=== PATIENT | male | born 2000 | race Caucasian/White ===

== ENCOUNTER 2024-09-13 20:24 | Emergency (ER) | payer OTHER, SELFPAY ==
[2024-09-13] VITALS (9 sets, daily range): BP systolic 106–144; BP diastolic 68–86; PULSE 86–112; RESP 15–22; TEMP 36.6; O2SAT 96–100
--- NOTE | ~2024-09-13 | CT_ITS ---
EXAMINATION: CT brain wo con DATE: 09/13/2024 21:31 INDICATION: seizure . TECHNIQUE: Computed tomography (CT) of the head was performed without intravenous contrast. The mA wa s adjusted according to patient size. Iterative reconstruction technique was employed. The dose-lengt h product was 681.00 mGy-cm. COMPARISON: 11/01/2022. FINDINGS: No acute intracranial hemorrhage or extra-axial fluid collection. No hydrocephalus, mass, or herniation. No acute ischemic infarct. Unremarkable dural venous sinus attenuation. No acute osseous abnormality. Small right maxillary retention cyst/polyp, the remaining aerated spaces are clear. IMPRESSION: No acute intracranial process. Reviewed, dictated and finalized at location K. MING INSTRUCTOR
--- NOTE | 2024-09-13 20:32 | ECG_ITS ---
Test Date: 2024-09-13 20:57:30 Measurements Intervals [place] Rate: 82 P: 73 [place]: 132 QRS: 86 QRSD: 104 T: 75 QT: 376 QTc: 441 Interpretive Statements SINUS RHYTHM POSSIBLE LEFT ATRIAL ENLARGEMENT INCOMPLETE RIGHT BUNDLE BRANCH BLOCK MINIMAL Q WAVES- INFERIOR LEADS BORDERLINE ECG No previous ECG available for comparison Electronically Signed On 09-14-2024 08:10:25 AUTOMOTIVE ELECTRICAL FITTER by Blaze Mack D.O.
--- OUTSIDE RECORDS SUMMARY | 2024-09-13 20:43 | XMS_ITS | Encounter Summary ---
Author Organization [facility] Address 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
--- OUTSIDE RECORDS SUMMARY | 2024-09-13 20:43 | XMS_ITS | Encounter Summary ---
Author Organization [facility] Address 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
--- OUTSIDE RECORDS SUMMARY | 2024-09-13 20:43 | XMS_ITS | Encounter Summary ---
Author Organization [facility] Address 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
--- OUTSIDE RECORDS SUMMARY | 2024-09-13 20:43 | XMS_ITS | Encounter Summary ---
Author Organization [facility] Address 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
--- OUTSIDE RECORDS SUMMARY | 2024-09-13 20:43 | XMS_ITS | Encounter Summary ---
Author Organization [facility] Address 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
--- OUTSIDE RECORDS SUMMARY | 2024-09-13 20:43 | XMS_ITS | Encounter Summary ---
Author Organization [facility] Address 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
--- OUTSIDE RECORDS SUMMARY | 2024-09-13 20:43 | XMS_ITS | Encounter Summary ---
Author Organization [facility] Address 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
--- OUTSIDE RECORDS SUMMARY | 2024-09-13 20:43 | XMS_ITS | Clinical Summary ---
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 Gender Identity Not on file Sexual Orientation Not on file Plan of Treatment Health Maintenance Due Date Last Done Comments Hepatitis C Virus (HCV) Screening 2001 Meningococcal B Immunization (1 of 2 - Standard) 2017 Human Papillomavirus (HPV) Immunization (2 - Male 3-dose series) 08/06/2017 07/09/2017 Influenza Immunization (#1) 2024 07/09/2017 SARS-COV-2 Immunization ( - season) 2024 Respiratory Syncytial Virus (RSV) Immunization (Adult) (1 - 1-dose 75+ series) 2076 Hepatitis B Immunization Completed 002, 2001, 2001 Pneumococcal Immunization Combined Completed 07/24/2002, 01/30/2002, 2001, Additional history exists DTaP/Tdap/Td Immunization Discontinued 2016, 03/21/2013, 03/19/2006, Additional history exists Meningococcal Immunization (ACWY) Completed 07/09/2017, 03/21/2013 TdaP Immunization Completed 07/09/2017, 03/21/2013 Rotavirus Immunization Aged Out No lo nger eligible based on patient's age to complete this topic
--- OUTSIDE RECORDS SUMMARY | 2024-09-13 20:43 | XMS_ITS | Encounter Summary ---
Author Organization [facility] Address 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
--- OUTSIDE RECORDS SUMMARY | 2024-09-13 20:43 | XMS_ITS | Clinical Summary ---
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 Gender Identity Not on file Sexual Orientation Not on file Plan of Treatment Health Maintenance Due Date Last Done Comments HPV VACCINES (1 - Male 3-dos e series) 2016 DTAP/TDAP/TD VACCINES (1 - Tdap) 2020 HEPATITIS B VACCINES (1 of 3 - 19+ 3-dose series) 2020 INFLUENZA VACCINE (#1) 2024 PNEUMOCOCCAL VACCINE 0-64 YEARS Aged Out No longer eligible based on patient's age to complete this topic Insurance * Guarantor: Ferny Coleman Account Type Relation to Patient Date of Phone Billing Address Personal/Family Self 2000 [phone] (Work) [address] [place] [address] BS BLUE ACCESS/TRUE BLUE PPO BLUE ACCESS/TRUE BLUE PPO Care Teams Motorcoach Operator Relationship Specialty Start Date End Date Ferny Herrera MD [address] [place] [address] PCP - General 02/19/03
--- OUTSIDE RECORDS SUMMARY | 2024-09-13 20:43 | XMS_ITS | Encounter Summary ---
Author Organization [facility] Address 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
--- OUTSIDE RECORDS SUMMARY | 2024-09-13 20:43 | XMS_ITS | Encounter Summary ---
Author Organization [facility] Address 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
--- OUTSIDE RECORDS SUMMARY | 2024-09-13 20:43 | XMS_ITS | Encounter Summary ---
Author Organization [facility] Address 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
--- OUTSIDE RECORDS SUMMARY | 2024-09-13 20:43 | XMS_ITS | Encounter Summary ---
Author Organization [facility] Address 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
--- OUTSIDE RECORDS SUMMARY | 2024-09-13 20:43 | XMS_ITS | Encounter Summary ---
Author Organization [facility] Address [address] [place] [address] Care Team Providers Care Bark Press Operator Name Role Phone Ferny Herrear MD Primary Care Provider [phone] Encounter Details Date Type Department Care Team (Late st Contact Info) Description 02/18/2003 Outpatient Historical [facility] Pediatrics [address] [place] [address] Daniel Lehman MD [address] 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
--- OUTSIDE RECORDS SUMMARY | 2024-09-13 20:43 | XMS_ITS | Encounter Summary ---
Author Organization [facility] Address 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
--- OUTSIDE RECORDS SUMMARY | 2024-09-13 20:43 | XMS_ITS | Clinical Summary ---
Author Organization [facility] Address [address] [place] [address]. [place], [place] [address] [place] [address] Care Team Providers Care Wing Commander Name Role Phone Marcellus Sutton MD Primary Care Provider [phone] Allergies No known active allergies Medications naloxone (NARCAN) 4 MG/0.1ML nasal spray 1 spray by Nasal route as needed for Opioid reversal. 2 each 3 Active buprenorphine (SUBUTEX) 2 MG SL tabletIndicatio ns:Medication-A ssisted Treatment (MAT) Place 1 tablet (2 mg total) under the tongue daily. Indications: Medication-Ass isted Treatment (MAT) 14 tablet 3 Active levETIRAcetam (KEPPRA) 500 MG tablet Take 1 tablet (500 mg total) by mouth 2 (two) times daily. 60 tablet 3 Active Social History Tobacco Use Types Packs/Day Years Used Date Smoking Tobacco: Never Smokeless Tobacco: Never Tobacco Cessation:Counseling Given: Not Answered Alcohol Use Standard Drinks/Week Comments Yes 0 (1 standard drink = 0.6 oz pur e alcohol) OCC Sex and Gender Information Value Date Recorded Sex Assigned at Not on file Legal Sex Male 5:15 PM CDT Gender Identity Not on file Sexual Orientation Not on file Last Filed Vital Signs Vital Sign Reading Time Taken Comments Blood Pressure 145/120 01/10/2023 3:18 AM CDT Pulse 66 01/10/2023 5:30 AM CDT Temperature 36.8 ??C (98.3 ??F) 01/10/2023 5:30 AM CD T Respiratory Rate 15 01/10/2023 5:30 AM CDT Oxygen Saturation 97% 01/10/2023 5:30 AM CDT Inhaled Oxygen Concentration - - Weight 60.4 kg (133 lb 2.5 oz) 01/10/2023 2:29 A M CDT Height 185.4 cm (6' 1 ) 01/10/2023 2:29 AM CDT Body Mass Index 17.57 01/10/2023 2:29 AM CDT Plan of Treatment Health Maintenance Due Date Last Done Comments Annual Physical 2004 Meningococcal B Vaccine (1 of 2 - Standard) 2017 HPV Vaccines (2 - Male 3-dose series) 08/06/2017 07/09/2017 Hepatitis C 2019 COVID-19 Vaccine ( - season) 2024 Influenza Adult (#1) 2024 07/09/2017 DTaP, Tdap and Td Vaccines (8 - Td or Tdap) 07/09/2027 07/09/2017, 03/21/2013, 03/19/2006, Additional history exists Hepatitis B Vaccines Completed 07/24/2002, 2001, 2001 Pneumococcal Vaccine: Pediatrics (0 to 5 Years) and At-Risk Patients (6 to 64 Years) Completed 07/24/2002, 01/30/2002, 2001, Additional history exists Meningococcal Vaccine Completed 07/09/2017, 013 RSV Immunizations Under 20 Months Aged Out No longer eligible based on patient's age to complete this topic Insurance MEDICAID Care Teams Wing Commander Relationship Specialty Start Date End Date Marcellus Sutton MD [address] [place] [address] PCP - General FAMILY PRACTICE 08/11/22
[2024-09-13 20:51] LABS: Basophils Absolute Auto 0.1 K/mm3 (0.0-0.1); Basophils Percent Auto 0.5 % (0.2-1.2); Eosinophils Absolute Auto 0.1 K/mm3 (0-0.3); Eosinophils Percent Auto 0.8 % (0-4.4); Hematocrit 46.7 % (42.0-52.0); Hemoglobin 15.3 g/dL (14.0-18.0); Immature Granulocyte Absolute 0.15 K/mm3 (0.00-0.031); Lymphocytes Absolute Auto 4.01 K/mm3 (0.9-3.2); Mean Corpuscular HGB Conc 32.8 g/dl (32-36); Mean Corpuscular Hemoglobin 30.5 pg (26-34); Mean Corpuscular Volume 93.2 fl (80-100); Mean Platelet Volume 11.8 fl (7.4-10.4); Monocytes Absolute Auto 0.8 K/mm3 (0.1-0.6); Neutrophils Absolute Auto 10.3 K/mm3 (1.3-6.7); Neutrophils Percent Auto 66.7 % (45.5-73.1); Platelet Count Result 293 k/mm3 (150-375); Red Blood Count 5.01 M/mm3 (4.6-6.20); White Blood Count 15.4 K/mm3 (4.5-10.0)
[2024-09-13] MEDS: SODIUM CHLORIDE 0.9% IV 1,000 ML 999 ML IV CONT ×2 (20:51→23:12)
[2024-09-13] MEDS: LORazepam INJ (*CRX) 2 MG/ML VIAL IV PUSH (20:52)
--- NOTE | 2024-09-13 20:59 | ED_ITS ---
HPI - General Adult General Chief complaint: Seizure Stated complaint: seizure Time Seen by Provider: 09/13/24 20:28 History of Present Illness HPI narrative: Patient is a 24-year-old gentleman who presents emergency department with chief complaint of seizures. Patient has had 3 seizures and has prior history of seizures in the past but is not on any medications patient does report that he stopped using Percocet and Xanax recently The patient reports that he takes 6 2 mg Xanax is on a normal day and will also take a Percocet or two Related Data Allergies Allergy/AdvReac Type Severity Reaction Status Date / Time No Known Allergies Allergy Verified 09/13/24 21:12 Review of Systems 2 Review of Systems: A 10 system review of systems was completed on the patient and is negative except for what is stated in the HPI. Nursing and ancillary documentation was reviewed. Exam 2 Narrative: GENERAL: Well-appearing, well-nourished, and in no acute distress. Postictal HEAD: Normocephalic, atraumatic. EYES: PERRLA and EOMI. ENT: Nares clear, no rhinorrhea or epistaxis. Mucous membranes moist. NECK: Supple. CHEST: Clear to auscultation. No respiratory distress. HEART: Regular rate and rhythm. No murmur heard. Normal peripheral pulses. ABDOMEN: Soft, nontender, nondistended, normal active bowel sounds. EXTREMITIES: Normal range of motion. No edema. SKIN: Warm, dry, no rash. NEURO: No focal deficits. Alert and oriented x3. Confused PSYCH: Normal mood and affect. Course Vital Signs Vital signs: Vital Signs Temperature 36.6 C 09/13/24 20:23 Pulse Rate 112 H 09/13/24 20:23 Respiratory Rate 21 H 09/13/24 20:23 Pulse Oximetry 98 09/13/24 20:23 Oxygen Delivery Room Air 09/13/24 20:23 Temperature 36.6 C 09/13/24 21:15 Pulse Rate 88 09/13/24 22:57 Respiratory Rate 15 09/13/24 22:57 Blood Pressure 124/76 09/13/24 22:57 Pulse Oximetry 100 09/13/24 22:57 Oxygen Delivery Room Air 09/13/24 20:38 Medical Decision Making [facility] Narrative Medical decision making narrative: Patient was given Ativan in the emergency department to treat for benzodiazepine withdrawal/seizure activity the patient was not chemically restrained The patient is feeling much better at this time after receiving fluids and Ativan. The patient's lactate was initially elevated but after hydration and the patient improving has returned back to normal. In discussion with the patient his CIWA protocol is only 2 patient will be offered outpatient resources and given a prescription for Librium Vital Signs Vital Signs: Vital Signs Temperature 36.6 C 09/13/24 20:23 Pulse Rate 112 H 09/13/24 20:23 Respiratory Rate 21 H 09/13/24 20:23 Pulse Oximetry 98 09/13/24 20:23 Oxygen Delivery Room Air 09/13/24 20:23 Temperature 36.6 C 09/13/24 21:15 Pulse Rate 88 09/13/24 22:57 Respiratory Rate 15 09/13/24 22:57 Blood Pressure 124/76 09/13/24 22:57 Pulse Oximetry 100 09/13/24 22:57 Oxygen Delivery Room Air 09/13/24 20:38 Lab Data 09/13/24 20:45 09/13/24 20:45 Labs: Lab Results 09/13/24 09/14/24 Range/Units 20:45 01:17 WBC 15.4 H (4.5-10.0) K/mm3 RBC 5.01 (4.6-6.20) M/mm3 Hgb 15.3 (14.0-18.0) g/dL Hct 46.7 (42.0-52.0) % MCV 93.2 (80-100) fl MCH 30.5 (26-34) pg MCHC 32.8 (32-36) g/dl RDW 12.0 (11.5-14.5) % Plt Count 293 (150-375) k/mm3 MPV 11.8 H (7.4-10.4) fl Immature Gran % (Auto) 1.0 H (0-0.5) % Neut % (Auto) 66.7 (45.5-73.1) % Lymph % (Auto) 26.0 (18.3-44.2) % Churchill % (Auto) 5.0 (2.6-8.5) % Eos % (Auto) 0.8 (0-4.4) % Baso % (Auto) 0.5 (0.2-1.2) % Lymph # (Auto) 4.01 H (0.9-3.2) K/mm3 Churchill # (Auto) 0.8 H (0.1-0.6) K/mm3 Eos # (Auto) 0.1 (0-0.3) K/mm3 Baso # (Auto) 0.1 (0.0-0.1) K/mm3 Abs Immat Gran (auto) 0.15 H (0.00-0.031) K/mm3 Absolute Neuts (auto) 10.3 H (1.3-6.7) K/mm3 Absolute Nucleated RBC 0.000 (0.0-0.012) K/mm3 Nucleated RBC % 0.0 (0.0-0.2) % Sodium 141 (137-145) mmol/L Potassium 3.9 (3.4-5.0) mmol/L Chloride 103 (98-107) mmol/L Carbon Dioxide 8 L (22-30) mmol/L Anion Gap 30 H (4-12) mmol/L BUN 6 L (9-20) mg/dL Creatinine 0.85 (0.7-1.3) mg/dL Estim Creat Clear Calc 98 ml/min Estimated GFR > 60 (59 - ) Glucose 136 H (65-110) mg/dL Lactic Acid 15.0 H* 0.5 L (0.7-2.0) mmol/L Calcium 9.6 (8.4-10.2) mg/dL Magnesium 2.4 H (1.6-2.3) mg/dL Total Bilirubin 0.9 (0.2-1.3) mg/dL AST 34 (17-59) U/L ALT 28 (6-50) U/L Alkaline Phosphatase 55 (38-126) U/L Total Creatine Kinase 245 H (55-170) U/L Total Protein 7.0 (6.3-8.2) g/dL Albumin 5.0 (3.5-5.1) g/dL TSH 1.640 (0.465-4.680) uIU/mL Urine Color Yellow (Yellow) Urine Appearance Clear (Clear) Urine pH 5.5 (5.0-9.0) Ur Specific [place] 1.012 (1.001-1.035) Urine Protein 2+ H (Negative) mg/dL Urine Glucose (UA) Negative (Negative) mg/dL Urine Ketones Trace H (Negative) mg/dL Ur Blood (Man) 3+ H (Negative) Urine Nitrate Negative (Negative) Urine Bilirubin Negative (Negative) Urine Urobilinogen 0.2 (<2.0) mg/dL Add Ur Microanalysis Reviewed Leukocyte Esterase Rfl Negative (Negative) REENA/UL Urine RBC 0-2 (0-2) /hpf Urine WBC 0-5 (0-3) /hpf Ur Squamous Epith Cells None seen (Few) /hpf Urine Bacteria None seen /hpf Urine Casts 3-5 Salicylates < 1.0 L (2-20) mg/dL Urine Opiates Screen Negative (Negative) Urine Methadone Screen Negative (Negative) Acetaminophen < 10 L (10-30) ug/mL Ur Barbiturates Screen Negative (Negative) Ur Phencyclidine Scrn Negative (Negative) Ur Amphetamine Screen Negative (Negative) U Benzodiazepines Scrn Negative (Negative) Urine Cocaine Screen Negative (Negative) U Cannabinoids Screen Positive A (Negative) Ethyl Alcohol < 10 (<10) mg/dL Influenza A (RT-PCR) Negative (Negative) Influenza B (RT-PCR) Negative (Negative) RSV (RT-PCR) Negative (Negative) SARS-CoV-2 RNA (RT-PCR) Negative (Negative) Critical Care Time Critical Care Time Critical Care Time: Yes Total Critical Care Time: 35 Discharge Plan Discharge Clinical Impression: Benzodiazepine withdrawal, Drug withdrawal seizure Patient Disposition: Home, Self-Care Condition: Stable Instructions: Antibiotic Form, Benzodiazepine Use Disorder (ED) Patient Language: [place] Prescriptions: New chlordiazepoxide HCl 25 mg capsule 25 mg PO Q6-12H PRN (Reason: Benzodiazepine withdrawal) 4 Days Qty: 15 0RF Rx Instructions: Day 1: 50 mg every 6-12 hours Day 2: 25 mg every 6 hours Day 3: 25 mg twice daily Day 4: 25 mg at bedtime Follow-up/Referrals: [facility] [Outside] Saravanan Alva MD [Primary Care Provider] - Time of Disposition: 02:05
[2024-09-13 21:01] LABS: Acetaminophen < 10 ug/mL (10-30); Ethanol < 10 mg/dL (<10); Salicylate < 1.0 mg/dL (2-20)
[2024-09-13 21:10] LABS: Alanine Aminotransferase 28 U/L (6-50); Alkaline Phosphatase 55 U/L (38-126); Anion Gap 30 mmol/L (4-12); Aspartate Amino Transferase 34 U/L (17-59); Bilirubin,Total 0.9 mg/dL (0.2-1.3); Blood Urea Nitrogen 6 mg/dL (9-20); Calcium 9.6 mg/dL (8.4-10.2); Carbon Dioxide 8 mmol/L (22-30); Chloride 103 mmol/L (98-107); Creatine Kinase 245 U/L (55-170); Estimated CRCL calculation 98 ml/min; Estimated Glomerular Filt Rate > 60; Glucose 136 mg/dL (65-110); Magnesium 2.4 mg/dL (1.6-2.3); Potassium 3.9 mmol/L (3.4-5.0); Sodium 141 mmol/L (137-145)
[2024-09-13 21:12] LABS: Add Urine Microscopic? YES; Appearance Urine Clear (Clear); Bacteria Urine None Seen /hpf; Bilirubin Urine Negative (Negative); Blood Urine 3+ (Negative); Color Urine Yellow (Yellow); Glucose Urine UA Negative (Negative); Ketones Urine Trace mg/dL (Negative); Leukocyte Esterase Ur Negative LEU/UL (Negative); Need Manual Microscopic Reviewed; Nitrate Urine Negative (Negative); Protein Urine 2+ mg/dL (Negative); RBC Urine 0-2 /hpf (0-2); Specific Grav Ur 1.012 (1.001-1.035); Squamous Epithelial Cell Urine None Seen /hpf (Few); Urobilinogen Urine 0.2 mg/dL (<2.0); WBC Urine 0-5 /hpf (0-3); pH Urine 5.5 (5.0-9.0)
[2024-09-13 21:15] LABS: Amphetamine Screen Urine Negative (Negative); Barbiturate Screen Urine Negative (Negative); Benzodiazepines Screen Urine Negative (Negative); Cannabinoid Screen Urine Positive (Negative); Cocaine Screen Urine Negative (Negative); Methadone Screen Urine Negative (Negative); Opiate Screen Urine Negative (Negative); Phencyclidine Screen Urine Negative (Negative)
--- NOTE | 2024-09-13 21:15 | PC.NURSE ---
Patient AOx4 at this time.
[2024-09-13 21:27] LABS: Influenza A QL RT-PCR Negative (Negative); Influenza B QL RT-PCR Negative (Negative); RSV RNA, RT-PCR Negative (Negative); SARS-CoV-2 RNA PCR Negative (Negative)
[2024-09-13] MEDS: Please add drug allergy info to patient profile. 1 EACH XX (21:42)
[2024-09-13] MEDS: THIAMINE 500 MG/NS 100 ML 500 MG/100 ML BAG 200 MG IVPB (21:43)
[2024-09-13 23:47] LABS: Reflex Lactic Acid Yes or No Add Lactic
[2024-09-14 01:37] LABS: Lactic Acid 0.5 mmol/L (0.7-2.0)
[2024-09-14 03:28] VITALS: BP 118/72; PULSE 89; RESP 16; O2SAT 100
== END 2024-09-14 03:30 | disposition home or self-care (01) ==
PROVIDERS: Emergency Provider Emergency Medicine; PCP Pediatrics
DX: R56.9 Unspecified convulsions (principal); F13.239 Sedative, hypnotic or anxiolytic dependence with withdrawal, unspecified; F11.23 Opioid dependence with withdrawal; Z20.822 Contact with and (suspected) exposure to COVID-19
CPT/HCPCS: 36415; 70450; 80053; 80143; 80179; 80307; 81001; 82077; 82550; 83605; 83735; 84443; 85025; 87637; 93005; 96361; 96365; 96375; 99284; J2060; J3411; J7030

== ENCOUNTER 2024-11-27 15:22 | Observation (INO) | payer OTHER, SELFPAY ==
[2024-11-27] VITALS (40 sets, daily range): BP systolic 93–137; BP diastolic 52–78; PULSE 65–109; RESP 12–23; TEMP 36.6; O2SAT 95–100; BMI 19.1; BMI 18.2
--- NOTE | ~2024-11-27 | MR_ITS ---
MRI of the brain Clinical History: Recurrent seizure Technique: Axial and sagittal T1-weighted images were acquired. These were followed by axial T2-weigh marcin, diffusion weighted, gradient, and FLAIR images. Following intravenous administration of 13 cc Pr oHance gadolinium, T1-weighted fat-sat imaging was performed in the axial, coronal, and sagittal plan es. Findings: No abnormal signal seen in the brain parenchyma. No acute infarct, intracranial hemorrhage, or mass lesion. Ventricles and subarachnoid spaces are unremarkable. Orbits are unremarkable. Paranasal sinuses and m astoid air cells are clear. Major intracranial flow voids are intact. Sagittal midline structures are intact. No definite evidence for mesial temporal sclerosis. No abnormal postcontrast enhancement identified. IMPRESSION: Normal exam. Reviewed, dictated and finalized at location . IMPRESSION: Normal exam.
--- NOTE | ~2024-11-27 | CT_ITS ---
CT brain wo con Ordering provider: Sharon Mo PA-C History: 24 years Male with . fall, hi, seizure . Comparison: None. Technique: CT of the head without contrast. Radiation reduction technique utilized.The dose-length pr oduct was 681 mGy-cm. FINDINGS: BRAIN PARENCHYMA AND CSF SPACES: No midline shift, mass effect or hemorrhage. The brain parenchyma a nd CSF spaces are otherwise normal. VISUALIZED PARANASAL SINUSES: Left maxillary sinus disease. MASTOIDS: Well aerated. BONES: The bones appear intact. SOFT TISSUES: Visualized nasopharynx is normal. Superficial soft tissues are normal. IMPRESSION: No acute intracranial findings. Reviewed, dictated and finalized at location A.
--- NOTE | ~2024-11-27 | XR_ITS ---
XR chest 1V portable Ordering provider: Sharon Mo PA-C History: 24 years Male with . seizure . Comparison: May 30, 2021 FINDINGS: MEDIASTINUM: The cardiac silhouette is not enlarged. LUNGS: No infiltrates, effusions or pneumothorax. OTHER: No free air under the diaphragm. IMPRESSION: No acute cardiopulmonary pathology. Reviewed, dictated and finalized at location A.
--- NOTE | ~2024-11-27 | CT_ITS ---
CT brain wo con Ordering provider: Sharon Mo PA-C History: 24 years Male with . sz, [place] . Comparison: September 13, 2024 Technique: CT of the head without contrast. Radiation reduction technique utilized.The dose-length pr oduct was 681 mGy-cm. FINDINGS: BRAIN PARENCHYMA AND CSF SPACES: No midline shift, mass effect or hemorrhage. The brain parenchyma a nd CSF spaces are otherwise normal. VISUALIZED PARANASAL SINUSES: Well aerated. MASTOIDS: Well aerated. BONES: The bones appear intact. SOFT TISSUES: Visualized nasopharynx is normal. Superficial soft tissues are normal. IMPRESSION: No acute intracranial process. Reviewed, dictated and finalized at location A.
--- NOTE | ~2024-11-27 | CT_ITS ---
CT cervical spine wo con Ordering provider: Sharon Mo PA-C History: . fall, hi, seizure . Comparison: None. Technique: CT of the cervical spine was performed without contrast. Sagittal and coronal reformatted images were also obtained and reviewed. Automated exposure control and iterative reconstruction jayde hnique were employed. The dose-length product was 227.87 mGy-cm. FINDINGS: VERTEBRAE: Small bony fragment is seen in the spinous process of C7 on the right which may indicate a cute fracture. Bony fragment seen near to the spinous process of T1. The differential include nonunit ed apophysis versus acute or chronic fracture. MRI evaluation advised. Otherwise, No subluxation or a cute fracture. The occipital condyles are intact. DISC SPACES: Normal. PARASPINOUS SOFT TISSUES: Normal. IMPRESSION: No acute osseous abnormality cervical spine. Bony fragment seen near to the spinous process of T1 and C7 which may be an acute fracture, nonunited apophysis or chronic fracture. Clinical evaluation and if warranted MRI is advised. Reviewed, dictated and finalized at location A. IMPRESSION: No acute osseous abnormality cervical spine. Bony fragment seen near to the spinous process of T1 and C7 which may be an acu te fracture, nonunited apophysis or chronic fracture. Clinical evaluation and i f warranted MRI is advised.
--- NOTE | 2024-11-27 16:58 | ECG_ITS ---
Test Date: 2024-11-27 17:52:52 Measurements Intervals [place] Rate: 70 P: 62 VT: 116 QRS: 88 QRSD: 100 T: 76 QT: 365 QTc: 396 Interpretive Statements SINUS RHYTHM WITH SHORT VT INTERVAL INCOMPLETE RIGHT BUNDLE BRANCH BLOCK MINIMAL Q WAVES- ANTEROLAT/INF LEADS ST ELEVATION IN ANTEROLAT/INF LEADS- PROBABLY EARLY REPOLARIZATION BASELINE ARTIFACT- V4 BORDERLINE ECG Compared to ECG 09/13/2024 20:57:30 Short VT interval now present Early repolarization now present Electronically Signed On 11-27-2024 20:06:25 CDT by Blaze Mack D.O.
[2024-11-27 17:23] LABS: Basophils Absolute Auto 0.1 K/mm3 (0.0-0.1); Basophils Percent Auto 0.6 % (0.2-1.2); Eosinophils Absolute Auto 0.2 K/mm3 (0-0.3); Eosinophils Percent Auto 1.7 % (0-4.4); Hematocrit 45.2 % (42.0-52.0); Immature Granulocyte Absolute 0.05 K/mm3 (0.00-0.031); Immature Granulocyte Percent A 0.5 % (0-0.5); Lymphocytes Absolute Auto 1.05 K/mm3 (0.9-3.2); Lymphocytes Percent Auto 9.5 % (18.3-44.2); Mean Corpuscular HGB Conc 33.2 g/dl (32-36); Mean Corpuscular Volume 93.4 fl (80-100); Mean Platelet Volume 12.1 fl (7.4-10.4); Monocytes Absolute Auto 0.6 K/mm3 (0.1-0.6); Monocytes Percent Auto 5.3 % (2.6-8.5); Neutrophils Absolute Auto 9.1 K/mm3 (1.3-6.7); Neutrophils Percent Auto 82.4 % (45.5-73.1); Platelet Count Result 187 k/mm3 (150-375); Red Blood Count 4.84 M/mm3 (4.6-6.20); Red Cell Distribution Width 11.9 % (11.5-14.5)
--- OUTSIDE RECORDS SUMMARY | 2024-11-27 17:26 | XMS_ITS | Clinical Summary ---
Author Organization [facility] Care Team Providers Care Rn Office Name Role Phone Unavailable Primary Care Provider Unavailabl e Social History Tobacco Use Types Packs/Day Years Used Date Smoking Tobacco: Never Assessed Sex and Gender Information Value Date Recorded Sex Assigned at Not on file Legal Sex Male 3:47 PM MANGANESE BREAKER Gender Identity Not on file Sexual Orientation [...]
--- OUTSIDE RECORDS SUMMARY | 2024-11-27 17:26 | XMS_ITS | Encounter Summary ---
Author Organization [facility] Address [address] [place] [address] Care Team Providers Care Cloth Finishing Range Operator Chief Name Role Phone Ferny Herrera MD Primary Care Provider [phone] Encounter Details Date Type Department Care Team (Late st Contact Info) Description 01/28/2003 Outpatient Historical [facility] Pediatrics [address] [place] [address] Daniel Lehman MD 20 [facility] [address] [place] [address] Social History Tobacco Use Types Packs/Day Years Used Date Smoking Tobacco: Never Assessed Sex and Gender Information Value Date Recorded Sex Assigned at Not on file 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
--- OUTSIDE RECORDS SUMMARY | 2024-11-27 17:26 | XMS_ITS | Encounter Summary ---
Author Organization [facility] Address 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
--- OUTSIDE RECORDS SUMMARY | 2024-11-27 17:26 | XMS_ITS | Clinical Summary ---
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 MAINT TECH Gender Identity Not on file Sexual Orientation Not on file Plan of Treatment Health Maintenance Due Date Last Done Comments HPV VACCINES (1 - Male 3-dose series) 2016 DTAP/TDAP/TD VACCINES (1 - Tdap) 2020 HEPATITIS B VACCINES (1 of 3 - 19+ 3-dose series) 06/13 INFLUENZA VACCINE (#1) 2024 Insurance * Guarantor: Ferny Coleman Account Type Relation to Patient Date of Phone Billing Address Personal/Family Self 2000 [phone] (Work) [address] [place], [place] [id number] [facility] BLUE ACCESS/TRUE BLUE PPO BS BLUE ACCESS/TRUE BLUE PPO Care Teams Hearing Aid Assembly Supervisor Relationship Specialty Start Date End Date Ferny Herrera MD [address] [place] [address] PCP - General 02/19/03
--- OUTSIDE RECORDS SUMMARY | 2024-11-27 17:26 | XMS_ITS | Encounter Summary ---
Author Organization [facility] Address [address] [place] [address] Care Team Providers Care Candy Maker Helper Name Role Phone Ferny Herrera MD Primary Care Provider [phone] Encounter Details Date Type Department Care Team (Late st Contact Info) Description 09/02/2003 Outpatient Historical [facility] Pediatrics [address] [place] [address] Ferny Herrera MD [address] [address] Social History Tobacco Use Types Packs/Day Years Used Date Smoking Tobacco: Never Assessed Sex and Gender Information Value Date Recorded Sex Assigned at Not on file Legal Sex Male 2:57 AM MANAGER INTERNAL Gender Identity Not on file Sexual Orientation Not on file documented as of this encounter Plan of Treatment Not on file documented as of this encounter Visit Diagnoses Not on filedocumented in this encounter Care Teams Candy Maker Helper Relationship Specialty Start Date End Date Ferny Herrera MD 20 [facility] [address] [place] [address] PCP - General 02/19/03 documented as of this encounter
--- OUTSIDE RECORDS SUMMARY | 2024-11-27 17:26 | XMS_ITS | Encounter Summary ---
Author Organization [facility] Address [address] [place] [address] Care Team Providers Care Mailing Specialist Name Role Phone Ferny Herrera MD Primary Care Provider [phone] Encounter Details Date Type Department Care Team (Late st Contact Info) Description 12/09/2002 Outpatient Historical [facility] Pediatrics [address] [place] [address] Ferny Herrera MD [address] [address] Social History Tobacco Use Types Packs/Day Years Used Date Smoking Tobacco: Never Assessed Sex and Gender Information Value Date Recorded Sex Assigned at Not on file Legal Sex Male 2:57 AM STAFF ATTORNEY Gender Identity Not on file Sexual Orientation Not on file documented as of this encounter Plan of Treatment Not on file documented as of this encounter Visit Diagnoses Not on filedocumented in this encounter Care Teams Mailing Specialist Relationship Specialty Start Date End Date Ferny Herrera MD 20 [facility] [address] [place] [address] PCP - General 02/19/03 documented as of this encounter
--- OUTSIDE RECORDS SUMMARY | 2024-11-27 17:26 | XMS_ITS | Encounter Summary ---
Author Organization [facility] Address [address] [place] [address] Care Team Providers Care Superintendent Track Name Role Phone Ferny Herrera MD Primary Care Provider [phone] Encounter Details Date Type Department Care Team (Late st Contact Info) Description 01/02/2003 Outpatient Historical [facility] Pediatrics [address] [place] [address] Ferny Hererra MD [address] [address] Social History Tobacco Use Types Packs/Day Years Used Date Smoking Tobacco: Never Assessed Sex and Gender Information Value Date Recorded Sex Assigned at Not on file Legal Sex Male 2:57 AM HEDIS REGISTERED NURSE RN Gender Identity Not on file Sexual Orientation Not on file documented as of this encounter Plan of Treatment Not on file documented as of this encounter Visit Diagnoses Not on filedocumented in this encounter Care Teams Superintendent Track Relationship Specialty Start Date End Date Ferny Herrera MD 20 [facility] [address] [place] [address] PCP - General 02/19/03 documented as of this encounter
--- OUTSIDE RECORDS SUMMARY | 2024-11-27 17:26 | XMS_ITS | Encounter Summary ---
Author Organization [facility] Address [address] [place] [address] Care Team Providers Care Equipment Oiler Name Role Phone Ferny Herrera MD Primary Care Provider [phone] Encounter Details Date Type Department Care Team (Late st Contact Info) Description 04/16/2003 Outpatient Historical [facility] Pediatrics [address] [place] [address] Ferny Herrera MD [address] [address] Social History Tobacco Use Types Packs/Day Years Used Date Smoking Tobacco: Never Assessed Sex and Gender Information Value Date Recorded Sex Assigned at Not on file Legal Sex Male 2:57 AM DIRECTOR OF MUSIC THERAPY Gender Identity Not on file Sexual Orientation Not on file documented as of this encounter Plan of Treatment Not on file documented as of this encounter Visit Diagnoses Not on filedocumented in this encounter Care Teams Equipment Oiler Relationship Specialty Start Date End Date Ferny Herrera MD 20 [facility] [address] [place] [address] PCP - General 02/19/03 documented as of this encounter
--- OUTSIDE RECORDS SUMMARY | 2024-11-27 17:26 | XMS_ITS | Encounter Summary ---
Author Organization [facility] Address [address] [place] [address] Care Team Providers Care Cable Assembler Name Role Phone Ferny Herrera MD Primary Care Provider [phone] Encounter Details Date Type Department Care Team (Late st Contact Info) Description 02/18/2003 Outpatient Historical [facility] Pediatric[facility] [address] [place] [address] Daniel Lehman MD 20 [facility] [address] [place] [address] Social History Tobacco Use Types Packs/Day Years Used Date Smoking Tobacco: Never Assessed Sex and Gender Information Value Date Recorded Sex Assigned at Not on file Legal Sex Male 2:57 AM CELL POURER Gender Identity Not on file Sexual Orientation Not on file documented as of this encounter Plan of Treatment Not on file documented as of this encounter Visit Diagnoses Not on filedocumented in this encounter Care Teams Cable Assembler Relationship Specialty Start Date End Date Ferny Herrera MD 20 [facility] [address] [place] [address] PCP - General 02/19/03 documented as of this encounter
--- OUTSIDE RECORDS SUMMARY | 2024-11-27 17:26 | XMS_ITS | Encounter Summary ---
Author Organization [facility] Address [address] [place] [address] Care Team Providers Care Pre Press Operator Name Role Phone Ferny Herrera MD Primary Care Provider [phone] Encounter Details Date Type Department Care Team (Late st Contact Info) Description 09/21/2003 Outpatient Historical [facility] Pediatrics [address] [place] [address] Ferny Herrera MD [address] [address] Social History Tobacco Use Types Packs/Day Years Used Date Smoking Tobacco: Never Assessed Sex and Gender Information Value Date Recorded Sex Assigned at Not on file Legal Sex Male 2:57 AM DOCK MANAGER Gender Identity Not on file Sexual Orientation Not on file documented as of this encounter Plan of Treatment Not on file documented as of this encounter Visit Diagnoses Not on filedocumented in this encounter Care Teams Pre Press Operator Relationship Specialty Start Date End Date Ferny Herrera MD [address] [facility] [address] [place] [address] PCP - General 02/19/03 documented as of this encounter
--- OUTSIDE RECORDS SUMMARY | 2024-11-27 17:26 | XMS_ITS | Encounter Summary ---
Author [facility] Address [address] [place] [address] Care Team Providers Care Dipper Fish Name Role Phone Ferny Herrera MD Primary Care Provider [phone] Encounter Details Date Type Department Care Team (Latest Contact Info) Description 02/19/2003 Outpatient Historical [facility] Kalen Cates MD [address] [place], [place] [id number] CHR MUCOID OM SIMP/NOS (Primary Dx) Social History Tobacco Use Types Packs/Day Years Used Date Smoking Tobacco: Never Assessed Sex and Gender Information Value Date Recorded Sex Assigned at Not on file Legal Sex Male 2:57 AM AUDIOVISUAL TECHNICIAN Gender Identity Not on file Sexual Orientation Not on file documented as of this encounter Plan of Treatment Not on file documented as of this encounter Visit Diagnoses Diagnosis Simple or unspecified chronic mucoid otitis media- Primary documented in this encounter Care Teams Dipper Fish Relationship Specialty Start Date End Date Ferny Herrera MD [address] [place] [address] [address] [place] [address] PCP - General 02/19/03 documented as of this encounter
--- OUTSIDE RECORDS SUMMARY | 2024-11-27 17:26 | XMS_ITS | Encounter Summary ---
Author Organization [facility] Address [address] [place] [address] Care Team Providers Care Marble Chip Terrazzo Worker Name Role Phone Ferny Herrera MD Primary Care Provider [phone] Encounter Details Date Type Department Care Team (Late st Contact Info) Description 01/15/2003 Outpatient Historical [facility] Pediatrics [address] [place] [address] Jonh Shin MD [address] [address] Social History Tobacco Use Types Packs/Day Years Used Date Smoking Tobacco: Never Assessed Sex and Gender Information Value Date Recorded Sex Assigned at Not on file Legal Sex Male 2:[address] INSPECTOR Gender Identity Not on file Sexual Orientation Not on file documented as of this encounter Plan of Treatment Not on file documented as of this encounter Visit Diagnoses Not on filedocumented in this encounter Care Teams Marble Chip Terrazzo Worker Relationship Specialty Start Date End Date Ferny Herrera MD 20 [facility] [address] [place] [address] PCP - General 02/19/03 documented as of this encounter
--- OUTSIDE RECORDS SUMMARY | 2024-11-27 17:26 | XMS_ITS | Encounter Summary ---
Author Organization [facility] Address [address] [place] [address] Care Team Providers Care [employer] Pe Teacher Name Role Phone Ferny Herrera MD Primary Care Provider [phone] Encounter Details Date Type Department Care Team (Late st Contact Info) Description 12/08/2003 Outpatient Historical [facility] Pediatrics [address] [place] [address] Ferny Herrera MD [address] [address] Social History Tobacco Use Types Packs/Day Years Used Date Smoking Tobacco: Never Assessed Sex and Gender Information Value Date Recorded Sex Assigned at Not on file Legal Sex Male 2:57 AM BARREL POLISHER Gender Identity Not on file Sexual Orientation Not on file documented as of this encounter Plan of Treatment Not on file documented as of this encounter Visit Diagnoses Not on filedocumented in this encounter Care Teams Middle School Pe Teacher Relationship Specialty Start Date End Date Ferny Herrera MD [address] [facility] [address] [place] [address] PCP - General 02/19/03 documented as of this encounter
--- OUTSIDE RECORDS SUMMARY | 2024-11-27 17:26 | XMS_ITS | Encounter Summary ---
Author Organization [facility] Address [address] [place] [address] Care Team Providers Care Hospital Pharmacist Name Role Phone Ferny Herrera MD Primary Care Provider [phone] Encounter Details Date Type Department Care Team (Late st Contact Info) Description 07/24/2003 Outpatient Historical [facility] [address] [place] [address] Daniel Lehman MD 20 [facility] [address] [place] [address] Social History Tobacco Use Types Packs/Day Years Used Date Smoking Tobacco: Never Assessed Sex and Gender Information Value Date Recorded Sex Assigned at Not on file Legal Sex Male 2:57 AM REHABILITATION CENTER MANAGER Gender Identity Not on file Sexual Orientation Not on file documented as of this encounter Plan of Treatment Not on file documented as of this encounter Visit Diagnoses Not on filedocumented in this encounter Care Teams Hospital Pharmacist Relationship Specialty Start Date End Date Ferny Herrera MD 20 [facility] [address] [place] [address] PCP - General 02/19/03 documented as of this encounter
--- OUTSIDE RECORDS SUMMARY | 2024-11-27 17:26 | XMS_ITS | Encounter Summary ---
Author Organization [facility] Address [address] [place] [address] Care Team Providers Care Supervisor Metal Hanging Name Role Phone Ferny Herrera MD Primary Care Provider [phone] Encounter Details Date Type Department Care Team (Late st Contact Info) Description 08/04/2003 Outpatient Historical [facility] [address] [place] [phone] Ferny Herrera MD [address] [address] Social History Tobacco Use Types Packs/Day Years Used Date Smoking Tobacco: Never Assessed Sex and Gender Information Value Date Recorded Sex Assigned at Not on file Legal Sex Male 2:57 AM MEDIA RELATIONS DIRECTOR Gender Identity Not on file Sexual Orientation Not on file documented as of this encounter Plan of Treatment Not on file documented as of this encounter Visit Diagnoses Not on filedocumented in this encounter Care Teams Supervisor Metal Hanging Relationship Specialty Start Date End Date Ferny Herrera MD 20 [facility] [address] [place] [address] PCP - General 02/19/03 documented as of this encounter
--- OUTSIDE RECORDS SUMMARY | 2024-11-27 17:26 | XMS_ITS | Encounter Summary ---
Author Organization [facility] Address 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
--- OUTSIDE RECORDS SUMMARY | 2024-11-27 17:26 | XMS_ITS | Encounter Summary ---
Author Organization [facility] Address 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
--- OUTSIDE RECORDS SUMMARY | 2024-11-27 17:26 | XMS_ITS | Clinical Summary ---
Author Organization [facility] Address [address] [place] [address] Care Team Providers Care Quality Control Head Name Role Phone Marcellus Sutton MD Primary Care Provider [phone] Allergies No known active allergies Medications naloxone [...] 66 01/10/2023 5:30 AM CDT Temperature 36.8 C (98.3 F) 01/10/2023 5:30 AM CDT Respiratory Rate 15 01/10/2023 5:30 AM CDT [...] 2019 COVID-19 Vaccine ( - season) 2024 DTaP, Tdap and Td Vaccines (8 - Td or Tdap) 07/09/2027 07/09/2017, 03/21/2013, 03/19/2006, Additional history exists Hepatitis B Vaccines Completed 07/24/2002, 2001, 2001 Pneumococcal Vaccine: Pediatrics (0 to 5 Years) and At-Risk Patients (6 to 49 Years) Completed 07/24/2002, 01/30/2002, 2001, Additional history exists Meningococcal Vaccine Completed 07/09/2017, 013 RSV Immunizations Under 20 Months Aged Out No longer eligible based on patient's age to complete this topic Insurance MEDICAID Care Teams Quality Control Head Relationship Specialty Start Date End Date Marcellus Sutton MD [address] [place] [address] PCP - General FAMILY PRACTICE 08/11/22
[2024-11-27 17:34] LABS: Ethanol < 10 mg/dL (<10); Lactic Acid Reflex 1.7 mmol/L (0.7-2.0)
[2024-11-27 17:35] LABS: Alanine Aminotransferase 15 U/L (6-50); Albumin Level 4.3 g/dL (3.5-5.1); Alkaline Phosphatase 51 U/L (38-126); Anion Gap 5 mmol/L (4-12); Aspartate Amino Transferase 24 U/L (17-59); Bilirubin,Total 0.5 mg/dL (0.2-1.3); Blood Urea Nitrogen 5 mg/dL (9-20); Calcium 8.8 mg/dL (8.4-10.2); Carbon Dioxide 29 mmol/L (22-30); Chloride 105 mmol/L (98-107); Estimated CRCL calculation 103 ml/min; Estimated Glomerular Filt Rate > 60; Glucose 83 mg/dL (65-110); Magnesium 2.8 mg/dL (1.6-2.3); Potassium 4.2 mmol/L (3.4-5.0); Sodium 139 mmol/L (137-145)
[2024-11-27 17:45] LABS: INR 1.1; Partial Thromboplastin Time 22.3 Seconds (22.3-36.8); Prothrombin Time 14.2 Seconds (11.1-14.7)
[2024-11-27] MEDS: SODIUM CHLORIDE 0.9% IV 1,000 ML 999 ML IV CONT ×2 (17:53→20:23)
--- NOTE | 2024-11-27 18:01 | ED_ITS ---
HPI - Seizure General Chief Complaint: Seizure <JESIKA Machuca Last Filed: 11/27/24 21:42> Stated Complaint: seizure <JESIKA Machuca Last Filed: 11/27/24 21:42> Time Seen by Provider: 11/27/24 16:58 <JESIKA Machuca Last Filed: 11/27/24 21:42> Source: patient and old records reviewed <JESIKA Machuca Last Filed: 11/27/24 21:42> Mode of arrival: EMS <JESIKA Machuca Last Filed: 11/27/24 21:42> Limitations: no limitations <JESIKA Machuca Last Filed: 11/27/24 21:42> History of Present Illness HPI Narrative: Patient is a 24-year-old male who presents the ED via EMS with report of seizure-like activity. Patient reports he was at the mall earlier today with his girlfriend when he began having a seizure. He fell to the ground, did hit his head. He states his girlfriend reported that his seizure lasted for approximately 5 minutes. 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 He states he typically uses 3-4 Xanax and/or oxycodone per day. He has not had either of these medications in the past 2 days. He has never been diagnosed with epilepsy. Unsure if he has ever seen a neurologist. He is not on any antiepileptic medications. Has been seen in our ED previously for similar symptoms, as far back as 2022. Patient states he feels fine currently. Denies dizziness, lightheadedness, focal weakness or numbness, pain anywhere. Father reports patient has had at least 10+ seizures related to benzo withdrawal. <JESIKA Machuca Last Filed: 11/27/24 21:42> Related Data Allergies/Adverse Reactions: Allergies Allergy/AdvReac Type Severity Reaction Status Date / Time No Known Allergies Allergy Verified 09/25/24 07:48 <JESIKA Machuca Last Filed: 11/27/24 21:42> Review of Systems 2 Review of Systems: All systems reviewed & are unremarkable except as noted in HPI. 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 Patient denies significant medical history <Sharon Mo PA-C - Last Filed: 11/27/24 21:42> Surgical History Surgical History: Surgical History Hx of tympanostomy tubes <Sharon Mo PA-C - Last Filed: 11/27/24 21:42> Family History Family History: Family History Mother Allergies Hypertension Father Alcohol abuse Thrombus Liver disease <Sharon Mo PA-C - Last Filed: 11/27/24 21:42> Social History Social History: Social History Smoking packs per day: 0.25 Smoking cigarettes per day: 5.0 Years smoked: 3 Smoking pack-years: 0.75 Smoking status: Current every day smoker Alcohol intake: never Substance use: current Substance use type: marijuana, opiates, painkillers and prescription drug Do You Feel Safe in your Home?: Yes Lack of Transportation: No Lack of Food: Never True Current Housing: I Have Housing Concerned About Future Housing: No Difficulty Paying Gas/Electric Bills: No Difficulty Paying for Meds: No Currently Unemployed: No Education: Don't Know Difficulty w/ Childcare or Family Care: No Living arrangements: alone Occupation/Education: unemployed Gender identity (if verbalized by the patient): Male Spiritual care concerns: No <Sharon Mo PA-C - Last Filed: 11/27/24 21:42> Exam 2 Narrative: GENERAL: Somewhat lethargic appearing, thin with BMI of 19.2, non-toxic, in no acute distress. HEAD: Normocephalic, atraumatic. EYES: PERRL/EOMI, conjunctivae clear bilaterally. No nystagmus. NECK: Supple. No meningeal signs. RESPIRATORY: Airway patent, respirations nonlabored. Clear to auscultation bilaterally, no rales, rhonchi, wheezing. CARDIOVASCULAR: Regular rate and rhythm without murmurs, rubs, or gallops. Peripheral pulses 2+ and equal bilaterally. MUSCULOSKELETAL: Moves all extremities. No gross deformities. SKIN: Warm, dry, normal color. No rashes. NEURO: A&O X3. Somewhat somnolent appearing, but easily arousable. Answers questions and follows commands. Speech clear. CN II-XII intact. Sensation grossly intact. No ataxic movements. Strength 5/5 in upper and lower extremities bilaterally. Equal advanced manufacturing consultant strength bilaterally. PSYCHIATRIC: Flat affect. Normal interaction. <Sharon Mo PA-C - Last Filed: 11/27/24 21:42> Course MOBILITY ARCHITECT MANAGER/PA Physician Supervision For this patient encounter, I reviewed the MOBILITY ARCHITECT MANAGER or PA documentation, treatment plan, and medical decision making and had [id number] time with this patient. I performed all aspects of the MDM as documented. <Alan Phillips MD - Last Filed: 11/28/24 01:01> Vital Signs Vital signs: Vital Signs Temperature 97.9 F 11/27/24 15:24 Pulse Rate 90 11/27/24 15:24 Respiratory Rate 12 11/27/24 15:24 Blood Pressure 107/68 11/27/24 15:24 Pulse Oximetry 98 11/27/24 15:24 Oxygen Delivery Room Air 11/27/24 15:24 Temperature 98.9 F 11/28/24 00:32 Pulse Rate 86 11/28/24 00:32 Respiratory Rate 14 11/28/24 00:32 Blood Pressure 135/82 11/28/24 00:32 Pulse Oximetry 96 11/28/24 00:32 Oxygen Delivery Room Air 11/28/24 00:19 <Sharon Mo PA-C - Last Filed: 11/27/24 21:42> Vital Signs Temperature 97.9 F 11/27/24 15:24 Pulse Rate 90 11/27/24 15:24 Respiratory Rate 12 11/27/24 15:24 Blood Pressure 107/68 11/27/24 15:24 Pulse Oximetry 98 11/27/24 15:24 Oxygen Delivery Room Air 11/27/24 15:24 Temperature 98.9 F 11/28/24 00:32 Pulse Rate 86 11/28/24 00:32 Respiratory Rate 14 11/28/24 00:32 Blood Pressure 135/82 11/28/24 00:32 Pulse Oximetry 96 11/28/24 00:32 Oxygen Delivery Room Air 11/28/24 00:19 <Alan Phillips MD - Last Filed: 11/28/24 01:01> MDM - Seizure MDM Narrative Medical decision making narrative: Patient presented to ED with report of seizure-like activity, related to benzodiazepine withdrawal. History of similar in the past. Has been seen in our in ED for this in the past. Vital signs are stable. Patient neurologically intact upon my evaluation. No acute focal deficits. He is somewhat somnolent and lethargic, but easily arousable and answers all my questions. Cooperative. No active seizure like activity. Able to recall all the events of today. CT brain was obtained and negative. Chest x-ray clear. EKG without ischemic changes. Normal QTC. Does show some early repolarization. CBC with white blood cell count of 11. Stable H&H. Stable electrolytes. Stable kidney function. Lactic acid 1.7. Patient given fluids in the ED. UA clear. Urine drug screen positive for benzos, cannabinoids. Alcohol level negative. Patient has been doing well throughout ED stay, has not had any further seizure- like activity. Up ambulating with a steady gait, without issue, texting on his phone, conversing easily with nursing staff and parents at bedside. 1940- Large thud heard from patient's room. Patient fell over to the ground, hitting head, with generalized tonic-clonic seizure-like activity. Nurses and myself immediately to bedside. Seizure-like activity lasted approximately 1 minute and was resolved with 2 mg of Ativan. Patient placed back to ED stretcher. Slightly post ictal. Remains neurologically intact and able to follow my commands immediately after seizure however. He did bite his tongue with small amount of bleeding. No other wounds or abrasions noted. Patient denying any areas of pain. Repeat CT brain and cervical spine obtained. Patient given 5mg dose IV valium. Discussed case with Dr. Reyes, neurology, who did recommend EEG to rule out epileptic activity, MRI to rule out structural causes. Discussed case with Dr. Thomas, hospitalist, accepted patient for admission. Recommended Librium 50 mg q.6 hours scheduled. MRI and EEG ordered for a.m.. Seizure precautions initiated. <Sharon Mo PA-C - Last Filed: 11/27/24 21:42> Medical Records Attestation: I reviewed the patient's medical records. <Sharon Mo PA-C - Last Filed: 11/27/24 21:42> Lab Data Attestation: I reviewed the patient's lab results. <Sharon Mo PA-C - Last Filed: 11/27/24 21:42> Result diagrams: 11/27/24 17:17 11/27/24 17:17 <Sharon Mo PA-C - Last Filed: 11/27/24 21:42> Labs: Lab Results 11/27/24 11/27/24 Range/Units 17:17 19:17 WBC 11.0 H (4.5-10.0) K/mm3 RBC 4.84 (4.6-6.20) M/mm3 Hgb 15.0 (14.0-18.0) g/dL Hct 45.2 (42.0-52.0) % MCV 93.4 (80-100) fl MCH 31.0 (26-34) pg MCHC 33.2 (32-36) g/dl RDW 11.9 (11.5-14.5) % Plt Count 187 (150-375) k/mm3 MPV 12.1 H (7.4-10.4) fl Immature Gran % (Auto) 0.5 (0-0.5) % Neut % (Auto) 82.4 H (45.5-73.1) % Lymph % (Auto) 9.5 L (18.3-44.2) % [place] % (Auto) 5.3 (2.6-8.5) % Eos % (Auto) 1.7 (0-4.4) % Baso % (Auto) 0.6 (0.2-1.2) % Lymph # (Auto) 1.05 (0.9-3.2) K/mm3 [place] # (Auto) 0.6 (0.1-0.6) K/mm3 Eos # (Auto) 0.2 (0-0.3) K/mm3 Baso # (Auto) 0.1 (0.0-0.1) K/mm3 Abs Immat Gran (auto) 0.05 H (0.00-0.031) K/mm3 Absolute Neuts (auto) 9.1 H (1.3-6.7) K/mm3 Absolute Nucleated RBC 0.000 (0.0-0.012) K/mm3 Nucleated RBC % 0.0 (0.0-0.2) % PT 14.2 (11.1-14.7) Seconds INR 1.1 APTT 22.3 (22.3-36.8) Seconds Sodium 139 (137-145) mmol/L Potassium 4.2 (3.4-5.0) mmol/L Chloride 105 (98-107) mmol/L Carbon Dioxide 29 (22-30) mmol/L Anion Gap 5 (4-12) mmol/L BUN 5 L (9-20) mg/dL Creatinine 0.91 (0.7-1.3) mg/dL Estim Creat Clear Calc 103 ml/min Estimated GFR > 60 (59 - ) Glucose 83 (65-110) mg/dL Lactic Acid 1.7 (0.7-2.0) mmol/L Calcium 8.8 (8.4-10.2) mg/dL Magnesium 2.8 H (1.6-2.3) mg/dL Total Bilirubin 0.5 (0.2-1.3) mg/dL AST 24 (17-59) U/L ALT 15 (6-50) U/L Alkaline Phosphatase 51 (38-126) U/L Total Protein 7.0 (6.3-8.2) g/dL Albumin 4.3 (3.5-5.1) g/dL Urine Color Yellow (Yellow) Urine Appearance Clear (Clear) Urine pH 7.0 (5.0-9.0) Ur Specific [place] 1.007 (1.001-1.035) Urine Protein Negative (Negative) mg/dL Urine Glucose (UA) Negative (Negative) mg/dL Urine Ketones Negative (Negative) mg/dL Ur Blood (Man) Negative (Negative) Urine Nitrate Negative (Negative) Urine Bilirubin Negative (Negative) Urine Urobilinogen 0.2 (<2.0) mg/dL Leukocyte Esterase Rfl Negative (Negative) REENA/UL Urine Opiates Screen Negative (Negative) Urine Methadone Screen Negative (Negative) Ur Barbiturates Screen Negative (Negative) Ur Phencyclidine Scrn Negative (Negative) Ur Amphetamine Screen Negative (Negative) U Benzodiazepines Scrn Positive A (Negative) Urine Cocaine Screen Negative (Negative) U Cannabinoids Screen Positive A (Negative) Ethyl Alcohol < 10 (<10) mg/dL <Sharon Mo PA-C - Last Filed: 11/27/24 21:42> Lab Results 11/27/24 11/27/24 Range/Units 17:17 19:17 WBC 11.0 H (4.5-10.0) K/mm3 RBC 4.84 (4.6-6.20) M/mm3 Hgb 15.0 (14.0-18.0) g/dL Hct 45.2 (42.0-52.0) % MCV 93.4 (80-100) fl MCH 31.0 (26-34) pg MCHC 33.2 (32-36) g/dl RDW 11.9 (11.5-14.5) % Plt Count 187 (150-375) k/mm3 MPV 12.1 H (7.4-10.4) fl Immature Gran % (Auto) 0.5 (0-0.5) % Neut % (Auto) 82.4 H (45.5-73.1) % Lymph % (Auto) 9.5 L (18.3-44.2) % [place] % (Auto) 5.3 (2.6-8.5) % Eos % (Auto) 1.7 (0-4.4) % Baso % (Auto) 0.6 (0.2-1.2) % Lymph # (Auto) 1.05 (0.9-3.2) K/mm3 [place] # (Auto) 0.6 (0.1-0.6) K/mm3 Eos # (Auto) 0.2 (0-0.3) K/mm3 Baso # (Auto) 0.1 (0.0-0.1) K/mm3 Abs Immat Gran (auto) 0.05 H (0.00-0.031) K/mm3 Absolute Neuts (auto) 9.1 H (1.3-6.7) K/mm3 Absolute Nucleated RBC 0.000 (0.0-0.012) K/mm3 Nucleated RBC % 0.0 (0.0-0.2) % PT 14.2 (11.1-14.7) Seconds INR 1.1 APTT 22.3 (22.3-36.8) Seconds Sodium 139 (137-145) mmol/L Potassium 4.2 (3.4-5.0) mmol/L Chloride 105 (98-107) mmol/L Carbon Dioxide 29 (22-30) mmol/L Anion Gap 5 (4-12) mmol/L BUN 5 L (9-20) mg/dL Creatinine 0.91 (0.7-1.3) mg/dL Estim Creat Clear Calc 103 ml/min Estimated GFR > 60 (59 - ) Glucose 83 (65-110) mg/dL Lactic Acid 1.7 (0.7-2.0) mmol/L Calcium 8.8 (8.4-10.2) mg/dL Magnesium 2.8 H (1.6-2.3) mg/dL Total Bilirubin 0.5 (0.2-1.3) mg/dL AST 24 (17-59) U/L ALT 15 (6-50) U/L Alkaline Phosphatase 51 (38-126) U/L Total Protein 7.0 (6.3-8.2) g/dL Albumin 4.3 (3.5-5.1) g/dL Urine Color Yellow (Yellow) Urine Appearance Clear (Clear) Urine pH 7.0 (5.0-9.0) Ur Specific [place] 1.007 (1.001-1.035) Urine Protein Negative (Negative) mg/dL Urine Glucose (UA) Negative (Negative) mg/dL Urine Ketones Negative (Negative) mg/dL Ur Blood (Man) Negative (Negative) Urine Nitrate Negative (Negative) Urine Bilirubin Negative (Negative) Urine Urobilinogen 0.2 (<2.0) mg/dL Leukocyte Esterase Rfl Negative (Negative) REENA/UL Urine Opiates Screen Negative (Negative) Urine Methadone Screen Negative (Negative) Ur Barbiturates Screen Negative (Negative) Ur Phencyclidine Scrn Negative (Negative) Ur Amphetamine Screen Negative (Negative) U Benzodiazepines Scrn Positive A (Negative) Urine Cocaine Screen Negative (Negative) U Cannabinoids Screen Positive A (Negative) Ethyl Alcohol < 10 (<10) mg/dL <Alan Phillips MD - Last Filed: 11/28/24 01:01> Imaging Data Attestation: I personally reviewed and interpreted this imaging study as follows: < Sharon Mo PA-C - Last Filed: 11/27/24 21:42> Radiologist's impression: ITS Impressions Chest X-Ray 11/27/24 17:48 IMPRESSION: No acute cardiopulmonary pathology. Head CT 11/27/24 17:53 IMPRESSION: No acute intracranial process. <Sharon Mo PA-C - Last Filed: 11/27/24 21:42> ECG Data EKG #1: Attestation: I personally reviewed and interpreted this ECG as follows: <Sharon Mo PA-C - Last Filed: 11/27/24 21:42> ECG completion date: 11/27/24 <Sharon Mo PA-C - Last Filed: 11/27/24 21:42> ECG completion time: 17:52 <Sharon Mo PA-C - Last Filed: 11/27/24 21:42> EKG Interpretation: normal rate (70), sinus rhythm, non-specific ST changes (early repol), normal QRS and normal QT <JESIKA Machuca Last Filed: 11/27/24 21:42> Discharge Plan Discharge Clinical Impression: Benzodiazepine withdrawal, Recurrent seizures <JESIKA Machuca Last Filed: 11/27/24 21:42> Patient Disposition: Still a Patient <JESIKA Machuca Last Filed: 11/27/24 21:42> Condition: Serious <Sharon Mo PA-C - Last Filed: 11/27/24 21:42>
--- NOTE | 2024-11-27 19:20 | PC.NURSE ---
SETH Mo asked to assess pt's ability to ambulate. Pt was able to walk around ED independently, steady, and able to text while walking as well. Pt denied any complaints. Provider witnessed him walking as well. Plan for neuro consult and probable discharge. Pt and family at bedside updated.
[2024-11-27 19:26] LABS: Add Urine Microscopic? NO; Appearance Urine Clear (Clear); Bilirubin Urine Negative (Negative); Blood Urine Negative (Negative); Color Urine Yellow (Yellow); Glucose Urine UA Negative (Negative); Ketones Urine Negative (Negative); Leukocyte Esterase Ur Negative LEU/UL (Negative); Nitrate Urine Negative (Negative); Protein Urine Negative (Negative); Specific Grav Ur 1.007 (1.001-1.035); Urobilinogen Urine 0.2 mg/dL (<2.0)
[2024-11-27] MEDS: LORazepam INJ (*CRX) 2 MG/ML VIAL IV PUSH (19:34)
[2024-11-27 19:44] LABS: Amphetamine Screen Urine Negative (Negative); Barbiturate Screen Urine Negative (Negative); Benzodiazepines Screen Urine Positive (Negative); Cannabinoid Screen Urine Positive (Negative); Cocaine Screen Urine Negative (Negative); Methadone Screen Urine Negative (Negative); Opiate Screen Urine Negative (Negative); Phencyclidine Screen Urine Negative (Negative)
[2024-11-27] MEDS: diazePAM INJ (*CRX) 10 MG/2 ML SYRINGE 5 MG IV PUSH (20:23)
[2024-11-27] MEDS: chlordiazePOXIDE (*CRX) 25 MG CAPSULE 50 MG PO (23:43)
[2024-11-27] MEDS: SODIUM CHLORIDE 0.9% IV 1,000 ML 100 ML IV CONT (23:44)
[2024-11-28] VITALS: PULSE 78
[2024-11-28 00:32] VITALS: BP 135/82; PULSE 86; RESP 14; TEMP 37.2; O2SAT 96
[2024-11-28 04:00] VITALS: PULSE 69
--- NOTE | 2024-11-28 05:34 | PC.NURSE ---
Pt educated on use of cervical collar, and refused to wear collar. Nurse informed pt of importance of wearing the collar to prevent injury, but pt ultimately refused.
[2024-11-28] MEDS: chlordiazePOXIDE (*CRX) 25 MG CAPSULE 50 MG PO (05:42)
[2024-11-28 06:38] VITALS: BP 102/67; PULSE 73; RESP 16; TEMP 36.6; O2SAT 95
--- NOTE | 2024-11-28 09:34 | HP_ITS ---
DATE OF SERVICE: 11/28/2024 TIME: 0240. CHIEF COMPLAINT: Seizure. HISTORY OF PRESENT ILLNESS: A 24-year-old male with past medical history of prescription opiate abuse, benzodiazepine abuse, marijuana use, depression with prior suicidal ideation, who presented to the ER via EMS after seizure reportedly lasting 5 minutes. The patient's mother provided most of the history to bedside nurse. The patient has a long history of Xanax and oxycodone use and abuse. He last used Xanax 2 days ago. He had a witnessed tonic colonic seizure that reportedly lasted 5 minutes. EMS gave the patient Ativan. The patient was monitored in the ER and was postictal, but mentation improved. He still was not a good historian, but seemed to be stable for discharge. As they were preparing the patient for discharge. He then had a recurrent seizure that lasted about a minute that was also tonic clonic in nature. He did have evidence of injury to his tongue following the seizure. The patient did not have any loss of bowel or bladder control. The patient is not on any seizure medications at home, but he has had history of prior seizures thought to be due to drug withdrawal. Review of systems was limited as the patient was only oriented to person and place. He thought the month was October and that the year was 2023. Although the patient was awake and responsive, he was recalcitrant to provide much information and was overall poor historian. PAST MEDICAL HISTORY: Obtained from review of past records includes depression with prior suicidal ideation, seizures, benzodiazepine withdrawal, prescription opiate and benzodiazepine abuse, restless legs syndrome. PAST SURGICAL HISTORY: None. FAMILY HISTORY: Mother with essential hypertension and father with alcohol abuse, DVT, and cirrhosis. CODE STATUS: Full code. SOCIAL HISTORY: The patient lives with his mother. He smokes tobacco daily about a pack a day. He has history of prescription opiate and benzodiazepine abuse. He uses marijuana daily. Surrogate decision maker, mother. HOME MEDICATIONS: Trazodone 100 mg p.o. at bedtime as needed for insomnia. PHYSICAL EXAMINATION: VITAL SIGNS: Temperature 98.9, pulse 86, respiratory rate 14, blood pressure 135/82, satting 96% on room air. Weight is 62.7 kg, BMI 18.3. GENERAL: No acute distress. Thin body habitus, well-nourished, appears stated age. HEENT: Mucous membranes are dry. No oropharyngeal erythema, bruising to the lateral tongue. Pupils are equal and reactive with some irregularity to the upper quadrant of the right pupil. No scleral icterus. No conjunctival pallor. Head is normocephalic, atraumatic. SKIN: The patient has numerous tattoos across his face including on his eyelids, cheeks and chin. He has tattoos extending down his neck onto his arms. He has a bruise to his right lateral ribs, 10 and 11. No pallor, nonjaundiced. CHEST: No crepitus to palpation of the ribs. Lungs are clear to auscultation bilaterally and no increased work of breathing. CARDIOVASCULAR: Heart rate is regular rate, regular rhythm. No murmurs. 2+ bilateral radial and pedal pulses. NEUROLOGIC: The patient is alert and oriented to person and place. He thinks the month is October and that the year is 2023. He states that he does not know who the president is. He does follow simple commands. He has no gross motor deficits noted. PSYCHiATRIC: Flat/blunted affect. Poor judgment and insight. LABORATORY DATA: Urine drug screen was positive for THC and benzodiazepines. UA was unremarkable. PT was 14.2, INR 1.1, PTT 23.3. CMP is all out of order. Sodium 139, potassium 4.2, chloride 2.8, CO2 29, BUN 5, creatinine 0.91, albumin 4.3. AST, ALT, and alkaline phosphatase all within normal limits. WBC was 11, hemoglobin was 15, platelet count 187. Normal differential. COVID, flu, and RSV PCR were negative. CT of the brain without contrast demonstrated no acute intercranial process. Repeat CT performed after the patient had recurrent seizure and hit his head while ambulating in the ER was also negative for acute processes, but interpretation limited by artifact. CT of the cervical spine demonstrated possible C7-T1 spinous process fracture, may be old or anatomic variant. The patient has no tenderness over the C-spine area. ASSESSMENT/PLAN: 1. Witnessed tonic-clonic seizure, likely due to benzodiazepine withdrawal, but structural anomaly or underlying seizure disorder and not completely ruled out. MRI with and without contrast has been ordered of the brain for a.m. The patient has been placed on seizure precaution with seizure pads in place. Neuro checks q.4 hours. EEG has been ordered for a.m. We will place the patient on Librium for benzodiazepine withdrawal. 2. Tobacco abuse. Nicotine patch will be ordered as needed for nicotine withdrawal. 3. Possible C7-T1 spinous process fracture. The patient has absolutely no tenderness to palpation of the area and is currently refusing cervical spine collar due to not being symptomatic. The patient is a poor decision maker but the attempts to place the C-collar have been hampered. The patient was also uncooperative and repetitively removing air sampling and monitoring. 4. The patient has been admitted as observation status. 5. Home medication reconciliation was completed and reviewed. 6. The patient's code status is full code. 7. Advance directives: The patient does not have advance directives in place. D I MT: Malinda
[2024-11-28 10:00] VITALS: PULSE 59
--- NOTE | 2024-11-28 10:24 | PC.NURSE ---
Patient set bed alarm off and KARINA Herrera and MIREYA Mills entered the room to find patient out of bed. Patient had removed borderer and was attempting to remove his IV from his IV pole. Patient was angry and wanting to leave the unit to go home because son was not receiving care and no one would answer phone calls . KARINA Prater assisted him to the side of the bed and MIREYA Mills obtained a phone number to get ahold of patient's mother with consent from patient. Patient was able to reach mother via hospital phone and relaxed after talking with mother and knowing son was being cared for. Patient was compliant with RN Moi and shredder tender peat Nurse Samantha and allowed an assessment to be completed. Patient agrees to continue with hospital care when returning from procedure.
[2024-11-28] MEDS: ACETAMINOPHEN 325 MG TABLET 650 MG PO (10:54)
--- NOTE | 2024-11-28 11:03 | PC.NURSE ---
Patient returned to the unit and wants to leave soon. RN notified doctor.
--- NOTE | 2024-11-28 15:10 | PM.DS ---
DS: Admitting Diagnosis Discharge Date 11/28/24 Admitting Diagnosis seizure DS: Discharge Diagnosis Discharge Diagnosis (1) Benzodiazepine withdrawal: Code(s): F13.939 - Sedative, hypnotic or anxiolytic use, unspecified with withdrawal, unspecified Status: Acute (2) Seizure disorder: Code(s): G40.909 - Epilepsy, unspecified, not intractable, without status epilepticus Status: Acute DS: Summary Hospital Course Hospital Course: A 24-year-old male with past medical history of prescription opiate abuse, benzodiazepine abuse, marijuana use, depression with prior suicidal ideation, who presented to the ER via EMS after seizure reportedly lasting [address] cervical spine in the Er showed bony fragment near to the the spinous process of T1 and C7 which may be an acute fracture. MRI cervical spine was ordered after seeing the patient. At bedside patient noted he takes Xanax from the streets and that he is withdrawing from it, he was non committal and stated all through out interaction he asked for his mom. later after my encounter him nurse called me and stated patient signed AMA and follow his mom home. patient left AMA Time Spent with Patient Time attestation: Total time spent providing and/or coordinating discharge services: DS: Data Data Completed and Pending Labs on day of discharge: Labs from last 24 hours 11/27/24 11/27/24 19:17 17:17 WBC 11.0 H RBC 4.84 Hgb 15.0 Hct 45.2 MCV 93.4 MCH 31.0 MCHC 33.2 RDW 11.9 Plt Count 187 MPV 12.1 H Immature Gran % (Auto) 0.5 Neut % (Auto) 82.4 H Lymph % (Auto) 9.5 L [place] % (Auto) 5.3 Eos % (Auto) 1.7 Baso % (Auto) 0.6 Lymph # (Auto) 1.05 [place] # (Auto) 0.6 Eos # (Auto) 0.2 Baso # (Auto) 0.1 Abs Immat Gran (auto) 0.05 H Absolute Neuts (auto) 9.1 H Absolute Nucleated RBC 0.000 Nucleated RBC % 0.0 PT 14.2 INR 1.1 APTT 22.3 Sodium 139 Potassium 4.2 Chloride 105 Carbon Dioxide 29 Anion Gap 5 BUN 5 L Creatinine 0.91 Estim Creat Clear Calc 103 Estimated GFR > 60 Glucose 83 Lactic Acid 1.7 Calcium 8.8 Magnesium 2.8 H Total Bilirubin 0.5 AST 24 ALT 15 Alkaline Phosphatase 51 Total Protein 7.0 Albumin 4.3 Urine Color Yellow Urine Appearance Clear Urine pH 7.0 Ur Specific [place] 1.007 Urine Protein Negative Urine Glucose (UA) Negative Urine Ketones Negative Ur Blood (Man) Negative Urine Nitrate Negative Urine Bilirubin Negative Urine Urobilinogen 0.2 Leukocyte Esterase Rfl Negative Urine Opiates Screen Negative Urine Methadone Screen Negative Ur Barbiturates Screen Negative Ur Phencyclidine Scrn Negative Ur Amphetamine Screen Negative U Benzodiazepines Scrn Positive A Urine Cocaine Screen Negative U Cannabinoids Screen Positive A Ethyl Alcohol < 10 Discharge Plan Discharge Attending physician on discharge: Kamran José Discharging Clinician: Kamran José Patient Disposition: Left Against Medical Advice Activity: as tolerated Diet: as tolerated Patient Language: Guamanian Discharge Medications: No Action trazodone 100 mg tablet 100 mg PO QHS PRN (Reason: insomnia) 30 Days Qty: 30 2RF Date of admission: 11/27/24 21:09 Primary Care Provider: Marcellus Sutton Admitting Provider: Cyn Thomas Attending physician on admission: Kamran José Condition: Serious
--- NOTE | 2024-11-29 11:27 | WPDNEUROLOGY ---
Neurology EEG Report General Information Date of Study: 11/29/24 TEST EEG DIAGNOSIS Recurrent seizures with benzodiazepine withdrawal. CONDITION OF RECORDING awake, drowsy and asleep. EEG NUMBER [id number] CLINICAL HISTORY Patient was brought into the hospital for seizure-like activity. Reported he has episodes like this when he does not take anyone of his pain medication and does not smoke marijuana. EEG DESCRIPTION Background rhythm consists of low to medium voltage 8 to 9 hertz per 2nd alpha activity admixed with low-voltage 15 to 18 hertz per 2nd beta activity with posterior dominant and good anteroposterior gradient. Alpha activity is symmetrical block but the opening of the eyes. Low-voltage beta, alpha and theta activity seen during early phase of the sleep evolving into bilateral symmetrical sleep spindles And K complexes. Hyperventilation not done. Photic stimulation not done. Non paroxysmal. Nonfocal. Nonlateralizing. IMPRESSION Normal record during wakefulness, drowsiness, and during sleep without evidence of any paroxysmal activity or focal or generalized slowing activity. Clinical correlation recommended. This tracing is not diagnostic of any seizure or postictal state or encephalopathic state.
== END 2024-11-28 12:03 | disposition left against medical advice (07) ==
LOC: ANHED 21:42 → ANH2MED 22:45
PROVIDERS: Admitting Provider Internal Medicine; Emergency Provider Physician Assistant; PCP Family Medicine; Visit Provider Internal Medicine
DX: F13.139 Sedative, hypnotic or anxiolytic abuse with withdrawal, unspecified (principal); T42.4X5A Adverse effect of benzodiazepines, initial encounter; G40.909 Epilepsy, unspecified, not intractable, without status epilepticus; R93.7 Abnormal findings on diagnostic imaging of other parts of musculoskeletal system; F32.A Depression, unspecified; G25.81 Restless legs syndrome; F17.210 Nicotine dependence, cigarettes, uncomplicated; F12.90 Cannabis use, unspecified, uncomplicated; F11.10 Opioid abuse, uncomplicated; G47.00 Insomnia, unspecified; Z79.899 Other long term (current) drug therapy
CPT/HCPCS: 36415; 70450; 70553; 71045; 72125; 80053; 80307; 81003; 82077; 83605; 83735; 85025; 85610; 85730; 93005; 95816; 96361; 96374; 96375; 96376; 99285; A9270; A9579; G0378; J2060; J3360; J7030; L0140